=== PATIENT | male | born 1975 | race Two or more races ===

== ENCOUNTER 2022-12-03 04:19 | Emergency (ER) | payer MEDICAID ==
[~2022-12-03] VITALS: Ht 177.8 cm; Wt 90.9 kg
[2022-12-03] MEDS ORDERED: ACET-66 PO (04:56)
[2022-12-03] MEDS ORDERED: BACI28OI29 TP (04:56)
[2022-12-03] MEDS ORDERED: GABA-1181 PO (04:56)
[2022-12-03] MEDS ORDERED: IBUPROFEN 600 MG TABLET PO ONE (05:00)
[2022-12-03] MEDS ORDERED: BACITRACIN ZINC/POLYMYXIN B 14.2 GM OINTMENT TP ONE (05:00)
[2022-12-03] MEDS ORDERED: TraMADol HCL 50 MG TABLET PO ONE (05:00)
[2022-12-03] MEDS ORDERED: ACETAMINOPHEN 500 MG TABLET PO ONE (05:00)
[2022-12-03 05:41] VITALS: BP 109/80
== END 2022-12-03 05:42 | disposition home or self-care (01) ==
LOC: EMS 04:20
DX: T21.23XA Burn of second degree of upper back, initial encounter (principal); T31.0 Burns involving less than 10% of body surface
CPT/HCPCS: 16020; 99284; Z7502; Z7610

== ENCOUNTER 2022-12-07 01:20 | Emergency (ER) | payer MEDICAID ==
[~2022-12-07] VITALS: Ht 172.7 cm; Wt 79.5 kg
[~2022-12-07 01:20] MED LIST: ACET-66 PO; BACI28OI29 TP; GABA-1181 PO
[2022-12-07] MEDS ORDERED: ACETAMINOPHEN 500 MG TABLET PO ONE (02:00)
[2022-12-07] MEDS ORDERED: KETOROLAC TROMETHAMINE 30 MG/ML VIAL IM ONE (02:00)
[2022-12-07] MEDS ORDERED: LIDOCAINE 5% TRANSDERMAL PATCH TD ONE (02:00)
[2022-12-07 02:05] VITALS: BP 133/69
[2022-12-07] MEDS ORDERED: IBUP-1492 PO (07:35)
== END 2022-12-07 04:30 | disposition home or self-care (01) ==
LOC: EMS 01:21
DX: G89.29 Other chronic pain (principal); M54.50 Low back pain, unspecified
CPT/HCPCS: 99283; 96372; J1885

== ENCOUNTER 2022-12-07 07:13 | Emergency (ER) | payer MEDICAID ==
[~2022-12-07] VITALS: Ht 172.7 cm; Wt 81.8 kg
[2022-12-07 07:27] VITALS: BP 134/98
[2022-12-07] MEDS ORDERED: TraMADol HCL 50 MG TABLET PO ONE (07:30)
[2022-12-07] MEDS ORDERED: IBUP-1492 PO (07:35)
== END 2022-12-07 07:45 | disposition home or self-care (01) ==
LOC: EMS 07:16
DX: T22.052 Burn of unspecified degree of left shoulder (principal); X08.8XXD Exposure to other specified smoke, fire and flames, subsequent encounter
CPT/HCPCS: 99283